=== PATIENT | female | born 1995 | race Caucasian/White ===

== ENCOUNTER → 2020-04-20 | Outpatient (CLI) | payer BC ==
[~2020-04-20] MED LIST: NORE-88 PO
== END | disposition home or self-care (01) ==
LOC: STAR 10:15
PROVIDERS: ATTEND Anesthesiology
DX: Z01.812 Encounter for preprocedural laboratory examination (principal); Z20.828 Contact with and (suspected) exposure to other viral communicable diseases
CPT/HCPCS: 36415; 87635

== ENCOUNTER 2020-04-25 06:37 | Day surgery (SDC) | payer BC ==
[~2020-04-25] VITALS: Ht 167.6 cm; Wt 89.0 kg
[2020-04-25] MEDS ORDERED: LACTATED RINGERS 1,000 ML IV SCH (07:04)
[2020-04-25] MEDS ORDERED: NORE-88 PO (07:06)
[2020-04-25 07:07] VITALS: BP 156/107
[2020-04-25 07:20] VITALS: BP 146/93
[2020-04-25] MEDS ORDERED: CHLORHEXIDINE 15 ML UDC MM ONE (07:30)
[2020-04-25 07:32] LABS: HCG UR SG 1.026 (1.003-1.030)
[2020-04-25] MEDS ORDERED: OXYMETAZOLINE NASAL SPRAY 0.05%, 15ML ONE (08:34)
[2020-04-25] MEDS ORDERED: LIDOCAINE 1%-EPI 1:100K, 20ML ONE (08:34)
[2020-04-25] MEDS ORDERED: BACITRACIN OINT 500U/GM, 15 GM ONE (08:34)
[2020-04-25] MEDS ORDERED: FENTANYL PF 100 MCG/2ML ONE ×2 (08:41→10:04)
[2020-04-25] MEDS ORDERED: MIDAZOLAM 1 MG/ML, 2ML ONE (08:41)
[2020-04-25] MEDS ORDERED: PROPOFOL 10 MG/ML, 20ML ONE (08:42)
[2020-04-25] MEDS ORDERED: LIDOCAINE-MPF 2% ,5ML ONE ×2 (08:42)
[2020-04-25] MEDS ORDERED: SUCCINYLCHOLINE 20 MG/ML, 10ML ONE (08:42)
[2020-04-25] MEDS ORDERED: CEFAZOLIN 1,000 MG ONE ×2 (09:03)
[2020-04-25] MEDS ORDERED: DEXAMETHASONE 4 MG/ML, 1ML ONE ×3 (09:04)
[2020-04-25] MEDS ORDERED: ONDANSETRON 2MG/ML, 2ML ONE (09:40)
[2020-04-25] MEDS ORDERED: KETOROLAC 30 MG/1 ML ONE (09:40)
[2020-04-25] MEDS ORDERED: OXYcodone 5 MG/5 ML ORAL.SOL UDC PO PRN (10:00)
[2020-04-25] MEDS ORDERED: ONDANSETRON 2MG/ML, 2ML IVPush PRN (10:00)
[2020-04-25] MEDS ORDERED: OXYcodone 5 MG/5 ML ORAL.SOL UDC ONE (10:04)
[2020-04-25] MEDS: FENTANYL PF 100 MCG/2ML IV PRN ×2 (10:09→10:22)
== END 2020-04-25 11:45 | disposition home or self-care (01) ==
LOC: OUT 06:37
PROVIDERS: ATTEND Otolaryngology
DX: J32.8 Other chronic sinusitis (principal); J34.3 Hypertrophy of nasal turbinates; J32.4 Chronic pansinusitis; Z79.899 Other long term (current) drug therapy; Z88.0 Allergy status to penicillin
CPT/HCPCS: 30801; 31240; 31254; 31256; 31276; 81025; 88304; 88311; J0330; J0690; J1100; J1885; J2250; J2405; J2704; J3010; J3490; J7120